=== PATIENT | female | born 2000 ===

== ENCOUNTER 2023-01-03 12:21 | Day surgery (SDC) | payer SELFPAY ==
[2023-01-03] VITALS (14 sets, daily range): BP systolic 108–128; BP diastolic 60–82; PULSE 66–102; RESP 14–18; TEMP 36.2–37.7; O2SAT 98–100; BMI 18.5
--- NOTE | ~2023-01-03 | US_ITS ---
EXAMINATION: US OBSTETRICAL ULTRASOUND CLINICAL INFORMATION: Evaluate for positive test at home with cramping COMPARISON: None available. LMP: 11/28/2022. Gestational age by maternal dates is 5 weeks 1 day. Estimated date of delivery by maternal dates is 09/04/2023. TECHNIQUE: Transabdominal and transvaginal evaluation FINDINGS: There is no intrauterine gestational or visible yolk sac, embryo/fetus seen intrauterine uterus is of normal size and shape, position. Endometrium is identified and measured 0.6 cm There is fluid in cul-de-sac and right adnexa region MATERNAL ADNEXA: The right maternal ovary measures 2.9 x 2.2 x 2.0 cm with 1.5 x 1.5 x 1.7 cm corpus luteum cyst The left maternal ovary measures 2.5 x 2.0 x 1.7 cm. There is left adnexal 2.6 x 1.8 x 1.6 cm mass with cystic center most likely ectopic US/US OB pelvic and transvaginal IMPRESSION: Ectopic in the left adnexa with fluid in the cul-de-sac in the right adnexa. This critical result was discussed with Milagros De Anda M.D. at 14 22 on 01/03/2023 and it was ascertained that the content and urgency of the report was understood at the time of direct communication.
--- NOTE | 2023-01-03 12:29 | ED.ABDPAIN ---
HPI - Abdominal Pain General Chief Complaint: General Medical Stated Complaint: Abd Pain Time Seen by Provider: 01/03/23 13:25 Source: patient Mode of arrival: ambulatory Limitations: no limitations History of Present Illness HPI narrative: Patient comes to the emergency room complaining of 5 days of left lower quadrant pain/suprapubic pain and cramping. Patient denies tnausea, vomiting or diarrhea, no fever chills. No UTI symptoms. Patient states that her last menstrual period was on November 24. Today at home, she took a home test and was positive. Patient is a at approximately 5 weeks +1 day based on last menstrual period. Patient states that approximately 2 years ago she had a spontaneous . Patient states that yesterday the pain was the worst, today she decided to come to the emergency room. Patient denies vaginal bleeding or spotting. Related Data Allergies Allergy/AdvReac Type Severity Reaction Status Date / Time No Known Allergies Allergy Verified 01/03/23 12:31 Review of Systems Review of Systems Constitutional : No Weight loss, No Fever, No Chills, No Night Sweats, No Fatigue, No Malaise ENT/Mouth : No Hearing loss, No Ear Pain, No Nasal Congestion, No Sinus Pain, No Hoarseness, No sore throat, No Rhinorrhea, No Swallowing Difficulty Eyes: No Eye Pain, No Swelling, No Redness, No Foreign Body, No Discharge, No Vision Changes Cardiovascular : No Chest Pain, No SOB, No Dyspnea on Exertion, No Orthopnea, No Edema, No Palpitations Respiratory : No Cough, No Sputum, No Wheezing, No Smoke Exposure, No Dyspnea Gastrointestinal : No Nausea, No Vomiting, No Diarrhea, No Constipation, complaining of suprapubic/left lower quadrant pain, pain gradually increasing Genitourinary : no irregular bleeding, No Dysuria, No Urinary Frequency, No Hematuria, No Urinary Incontinence, No Urgency, No Flank Pain, No Urinary Flow Changes, No Hesitancy Musculoskeletal : No joint pain, No Myalgias, No Joint Swelling Skin : No Skin Lesions, No rash Neuro : No Weakness, No Numbness, No Paresthesias, No Loss of Consciousness, No Dizziness, No Headache Psych : No Anxiety/Panic, No Depression, No SI/HI/AH/VH, No Social Issues, Heme/Lymph: No Bruising, No Bleeding,No Lymphadenopathy Endocrine : No Polyuria, No Polydipsia, No Temperature Intolerance [facility] Social History Social History Advance Directives: No Physical Exam ED Vital Signs: Vital Signs - 24 hr 01/03/23 12:29 01/03/23 13:39 Temperature 98.1 F 98.8 F Pulse Rate 85 77 Respiratory Rate 16 16 Blood Pressure 108/66 123/72 Pulse Oximetry 99 100 Oxygen Delivery Method Room Air Room Air BMI result Body Mass Index 18.5 Const Other: Appearance: Alert. Oriented X3. No acute distress. Well-appearing Eyes: Pupils equal, round and reactive to light. ENT: Pharynx normal. Neck: Normal inspection. Neck supple. No lymph nodes noted. No crepitus CVS: Normal heart rate and rhythm. Pulses normal. Normal S1 and S2 Respiratory: No respiratory distress. Breath sounds normal. No Wheezing. No rales Abdomen: Soft, significant tenderness to palpation over suprapubic and left lower quadrant, moderate rebound no guarding No rigidity. No distention. Skin: Skin warm and dry. Normal skin color. Normal skin turgor. Extremities: No lower extremity edema. No Lacerations. No Rash Neuro: Oriented X 3. No motor deficit. No sensory deficit. Moving all extremities. No slurred speech. CN 2 through 12 grossly intact Psych: calm, cooperative, normal affect Course Course Course Narrative: RME: 22yo F w/ +home test this morning c/o abdominal cramping. States feels like some discharge occured. LMP 7/11. denies vaginal bleeding, fever Labs, US ordered Full HPI, ROS and PE to be performed by primary ED provider. Medical Decision Making Medical Decision Making [facility] Narrative: -my interpretation of labs: Patient's hemoglobin hematocrit stable -vital stable, blood pressure 123/72, heart rate 77 -patient's physical exam is concerning for rupture. -I discussed the ultrasound with Dr. Morrow from [facility], patient has a left ectopic with fluid in the cul-de-sac in the right adnexa -Dr. Gurrola at bedside. Dr. Gurrola and I discussed with the patient that the safest option is to go to the OR. -patient aware of risks versus benefits of the surgery. Patient is agreeable to go ahead with the surgery. Dr. 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 01/03/23 13:32 01/03/23 13:32 Labs: Lab Results 01/03/23 01/03/23 01/03/23 Range/Units 13:32 13:32 13:47 WBC 8.0 (4.8-10.8) X10*3/uL RBC 4.23 (4.20-5.50) X10*6/uL Hgb 13.6 (12.0-16.0) g/dl Hct 40.0 (37.0-47.0) % MCV 94.6 (80.0-98.0) fL MCH 32.2 (27.0-33.0) pg MCHC 34.0 (31.0-35.0) g/dl RDW 12.7 (11.0-16.0) % Plt Count 185 (160-400) X10*3/uL MPV 11.5 (9.4-12.3) fL Immature Gran % (Auto) 0.4 (0.0-0.4) % Neut % (Auto) 63.7 (45-73) % Lymph % (Auto) 26.7 (20-40) % Cocke % (Auto) 7.6 (2-11) % Eos % (Auto) 1.1 (0-4) % Baso % (Auto) 0.5 (0-2) % Lymph # (Auto) 2.1 (1.2-4.9) X10*3/uL Cocke # (Auto) 0.6 (0.1-1.2) X10*3/uL Eos # (Auto) 0.1 (0.0-0.4) X10*3/uL Baso # (Auto) 0.0 (0.0-0.2) X10*3/uL Abs Immat Gran (auto) 0.03 (0.00-0.03) X10*3/uL Absolute Neuts (auto) 5.1 (2.0-8.3) x10*3/uL Absolute Nucleated RBC 0.000 (0.0-0.012) X10*3/uL Nucleated RBC % (auto) 0.0 (0.0-0.2) /100WBC PT (11.1-13.3) SEC INR (0.9-1.1) APTT (26.0-36.4) SEC Sodium 136 (135-145) mmol/L Potassium 4.7 (3.3-5.1) mmol/L Chloride 109 H (96-108) mmol/L Carbon Dioxide 21 L (22-29) mmol/L Anion Gap 11 L (12-20) BUN 9 (9-16) mg/dL Creatinine 0.64 (0.5-1.4) mg/dL Estim Creat Clear Calc 102.9 Estimated GFR > 60 Random Glucose 98 (60-115) mg/dL Calcium 9.4 (8.4-10.2) mg/dL Total Bilirubin 1.1 H (0.0-1.0) mg/dL Direct Bilirubin 0.4 (0.0-0.5) mg/dL AST 22 (5-31) U/L ALT 14 (0-31) U/L Alkaline Phosphatase 38 L (39-117) U/L Total Protein 7.8 (6.5-8.0) g/dL Albumin 4.4 (3.5-5.0) g/dL Lipase 20 (8-78) U/L Beta HCG, Quant 900 mIU/mL Blood Type O Positive Antibody Screen NEGATIVE 01/03/23 Range/Units 13:47 WBC (4.8-10.8) X10*3/uL RBC (4.20-5.50) X10*6/uL Hgb (12.0-16.0) g/dl Hct (37.0-47.0) % MCV (80.0-98.0) fL MCH (27.0-33.0) pg MCHC (31.0-35.0) g/dl RDW (11.0-16.0) % Plt Count (160-400) X10*3/uL MPV (9.4-12.3) fL Immature Gran % (Auto) (0.0-0.4) % Neut % (Auto) (45-73) % Lymph % (Auto) (20-40) % Cocke % (Auto) (2-11) % Eos % (Auto) (0-4) % Baso % (Auto) (0-2) % Lymph # (Auto) (1.2-4.9) X10*3/uL Cocke # (Auto) (0.1-1.2) X10*3/uL Eos # (Auto) (0.0-0.4) X10*3/uL Baso # (Auto) (0.0-0.2) X10*3/uL Abs Immat Gran (auto) (0.00-0.03) X10*3/uL Absolute Neuts (auto) (2.0-8.3) x10*3/uL Absolute Nucleated RBC (0.0-0.012) X10*3/uL Nucleated RBC % (auto) (0.0-0.2) /100WBC PT 12.3 (11.1-13.3) SEC INR 1.0 (0.9-1.1) APTT 30.3 (26.0-36.4) SEC Sodium (135-145) mmol/L Potassium (3.3-5.1) mmol/L Chloride (96-108) mmol/L Carbon Dioxide (22-29) mmol/L Anion Gap (12-20) BUN (9-16) mg/dL Creatinine (0.5-1.4) mg/dL Estim Creat Clear Calc Estimated GFR Random Glucose (60-115) mg/dL Calcium (8.4-10.2) mg/dL Total Bilirubin (0.0-1.0) mg/dL Direct Bilirubin (0.0-0.5) mg/dL AST (5-31) U/L ALT (0-31) U/L Alkaline Phosphatase (39-117) U/L Total Protein (6.5-8.0) g/dL Albumin (3.5-5.0) g/dL Lipase (8-78) U/L Beta HCG, Quant mIU/mL Blood Type Antibody Screen Independent Interpretation I performed an independent interpretation of an: Ultrasound (Mild hypertension ultrasound, there seems to be free fluid in the abdomen) Radiology Impression Discussion of test interpretation with radiology: I have reviewed the radiologist's reading. Radiologist Impression: FINDINGS: There is no intrauterine gestational or visible yolk sac, embryo/fetus seen intrauterine uterus is of normal size and shape, position. Endometrium is identified and measured 0.6 cm There is fluid in cul-de-sac and right adnexa region MATERNAL ADNEXA: ? ? The right maternal ovary measures 2.9 x 2.2 x 2.0 cm with 1.5 x 1.5 x 1.7 cm corpus luteum cyst The left maternal ovary measures 2.5 x 2.0 x 1.7 cm.? There is left adnexal 2.6 x 1.8 x 1.6 cm mass with cystic center most likely ectopic US/US OB pelvic and transvaginal IMPRESSION: Ectopic in the left adnexa with fluid in the cul-de-sac in the right adnexa. ? Independent Historian Clinical information obtained from an independent historian. History obtained from or confirmed by: Other (Significant other/boyfriend) Critical Care Time Critical Care Time Critical Care Time: Yes Total Critical Care Time: 60 Attestation: I have personally provided critical care time. Time includes review of lab data, radiology results, discussion with consultants, and monitoring for potential decompensation. Intervention performed as documented. Discharge Plan Discharge Clinical Impression: Ruptured ectopic Patient Disposition: Admitted As Inpatient
--- NOTE | 2023-01-03 13:25 | P.CONOB_ITS ---
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 LMP 11/28 making her by today at 5 weeks and 1 day of gestation. the patient denies vaginal bleeding, fever. HCG 900. H&H within normal, chemistry normal. 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 Physical Exam Vitals Vital signs: Temp Pulse Resp BP Pulse Ox O2 Del Method 98.1 F 85 16 108/66 99 Room Air 01/03/23 12:29 01/03/23 12:29 01/03/23 12:29 01/03/23 12:29 01/03/23 12:29 01/03/23 12:29 BMI result Body Mass Index 18.5 Abdomen Auscultation/Inspection/Palpation: Tenderness (LLQ ), Guarding and Rebound tenderness Female Genitalia (Pelvic) Bladder/Urethra: Normal meatus Vagina: Nontender Cervix: Grossly normal and Cervical motion tenderness Uterus: Normal size Adnexa/Parametria: Adnexal Tenderness: Left [employer]CR[employer] 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 This critical result was discussed with Milagros De Anda M.D. at 14 22 on 01/03/2023 and it was ascertained that the content and urgency of the report was understood at the time of direct communication. Assessment and Plan (1) Ectopic : Status: Acute Discussed with the patient her clinical scenario, differential diagnosis includes not limited to: possible ectopic with tender left lower quadrant and positive rebound on abdominal exam and with free fluid in the cul-de-sac on ultrasound suggestive of possible early rupture versus early IUP with ruptured ovarian cyst. Discussed with the patient options of treatment including methotrexate versus surgical management, all pros and cons, risks and benefits of each were discussed with the patient. The patient decided to proceed with surgical management. Will plan diagnostic laparoscopy, possible laparoscopic salpingostomy possible partial salpingectomy, possible laparotomy. All the pros and cons were discussed with the patient including the risks including but not limited to: Risk of bleeding, infection, possible injury to bladder, bowel, ureter, bladder, possible injury to vessels and need for blood transfusion with all its risks including HIV, hepatitis-B and C and other blood borne pathogens, possible negative impact on future fertility. All questions answered, the patient verbalized understanding agreed with the plan and signed the consent. Time Spent With Patient Time: Total time managing care of this patient today ____ minutes.
--- NOTE | 2023-01-03 13:30 | PC.NURSE ---
pt c/o LLQ abd pain x 5 days; reports nausea denies v/d; reports some vaginal discharge; last menstruation early november. tenderness noted LLQ; no distention. iv established; labs drawn; type & screen completed per order.
[2023-01-03 13:36] LABS: MANUAL DIFF FLAG NO
[2023-01-03 13:41] LABS: Basophils Percent Auto 0.5 % (0-2); Eosinophils Absolute Auto 0.1 X10*3/uL (0.0-0.4); Eosinophils Percent Auto 1.1 % (0-4); Hemoglobin 13.6 g/dl (12.0-16.0); Imm Gran Abs Auto 0.03 X10*3/uL (0.00-0.03); Imm Gran Pct Auto 0.4 % (0.0-0.4); Lymphocytes Absolute Auto 2.1 X10*3/uL (1.2-4.9); Lymphocytes Percent Auto 26.7 % (20-40); Mean Corpuscular Hemoglobin 32.2 pg (27.0-33.0); Mean Corpuscular Volume 94.6 fL (80.0-98.0); Mean Platelet Volume 11.5 fL (9.4-12.3); Monocytes Absolute Auto 0.6 X10*3/uL (0.1-1.2); Monocytes Percent Auto 7.6 % (2-11); Neutrophils Absolute Auto 5.1 x10*3/uL (2.0-8.3); Neutrophils Percent Auto 63.7 % (45-73); Platelet Count 185 X10*3/uL (160-400); Red Blood Count 4.23 X10*6/uL (4.20-5.50); Red Cell Distribution Width 12.7 % (11.0-16.0)
[2023-01-03 14:08] LABS: Prothrombin Time 12.3 SEC (11.1-13.3)
[2023-01-03 14:10] LABS: Partial Thromboplastin Time 30.3 SEC (26.0-36.4)
[2023-01-03 14:12] LABS: Alanine Aminotransferase 14 U/L (0-31); Albumin Level 4.4 g/dL (3.5-5.0); Alkaline Phosphatase 38 U/L (39-117); Anion Gap 11 (12-20); Aspartate Amino Transferase 22 U/L (5-31); Bilirubin Direct 0.4 mg/dL (0.0-0.5); Bilirubin Total 1.1 mg/dL (0.0-1.0); Blood Urea Nitrogen 9 mg/dL (9-16); Calcium 9.4 mg/dL (8.4-10.2); Carbon Dioxide 21 mmol/L (22-29); Chloride 109 mmol/L (96-108); Creatinine Clr Calc Pharmacy 102.9; Estimated Glomerular Filt Rate > 60; Glucose Random 98 mg/dL (60-115); HCG Quantitative 900 mIU/mL; Lipase 20 U/L (8-78); Potassium 4.7 mmol/L (3.3-5.1); Sodium 136 mmol/L (135-145); Total Protein 7.8 g/dL (6.5-8.0)
--- NOTE | 2023-01-03 14:40 | PC.NURSE ---
OB Dr. Roche at bedside for pelvic exam; awaiting further orders for OR needs.
--- NOTE | 2023-01-03 15:56 | PC.NURSE ---
report given to pacu.
--- NOTE | 2023-01-03 16:24 | P.CONAN_ITS ---
HPI - Anesthesia Eval Consult details Narrative: 22 yo female patient for Laparoscopic salpingectomy PMFSH Active Problems Active Problems: All Active Problems (Updated 01/03/23 @ 16:27 by Susana Robles MD) Ectopic (Acute) Ruptured ectopic (Acute) H/o dental extractions(molars) with GA Approx. 5weeks by LMP Family History Family history of problems with anesthesia: No Surgical History History of Problems with Anesthesia: No Social History Social History (Updated 01/03/23 @ 17:40 by Susana Robles MD) Alcohol intake: current Alcohol intake frequency: a few times a week Patient Tobacco Use Status: Never used Tobacco Meds Allergies Allergy/AdvReac Type Severity Reaction Status Date / Time No Known Allergies Allergy Verified 01/03/23 12:31 Exam Exam Date and Time: January 03, 2023 1624 Height,Weight and Vital Signs: Height 5 ft 3 in Weight 47.3 kg Last Vital Signs Temp 98.8 F 01/03/23 13:39 Pulse 77 01/03/23 13:39 Resp 16 01/03/23 13:39 BP 123/72 01/03/23 13:39 Pulse Ox 100 01/03/23 13:39 O2 Del Method Room Air 01/03/23 13:39 Vital Signs Temp Pulse Resp BP Pulse Ox O2 Del Method 01/03/23 16:29 99.8 F 77 18 116/64 99 Room Air 01/03/23 13:39 98.8 F 77 16 123/72 100 Room Air 01/03/23 12:29 98.1 F 85 16 108/66 99 Room Air Pertinent Lab Results Pertinent Lab Results: Laboratory Tests 01/03/23 01/03/23 01/03/23 13:32 13:32 13:47 WBC 8.0 RBC 4.23 Hgb 13.6 Hct 40.0 MCV 94.6 MCH 32.2 MCHC 34.0 RDW 12.7 Plt Count 185 MPV 11.5 Immature Gran % (Auto) 0.4 Neut % (Auto) 63.7 Lymph % (Auto) 26.7 Jessamine % (Auto) 7.6 Eos % (Auto) 1.1 Baso % (Auto) 0.5 Lymph # (Auto) 2.1 Jessamine # (Auto) 0.6 Eos # (Auto) 0.1 Baso # (Auto) 0.0 Abs Immat Gran (auto) 0.03 Absolute Neuts (auto) 5.1 Absolute Nucleated RBC 0.000 Nucleated RBC % (auto) 0.0 PT INR APTT Sodium 136 Potassium 4.7 Chloride 109 H Carbon Dioxide 21 L Anion Gap 11 L BUN 9 Creatinine 0.64 Estim Creat Clear Calc 102.9 Estimated GFR > 60 Random Glucose 98 Calcium 9.4 Total Bilirubin 1.1 H Direct Bilirubin 0.4 AST 22 ALT 14 Alkaline Phosphatase 38 L Total Protein 7.8 Albumin 4.4 Lipase 20 Beta HCG, Quant 900 Blood Type O Positive Antibody Screen NEGATIVE 01/03/23 13:47 WBC RBC Hgb Hct MCV MCH MCHC RDW Plt Count MPV Immature Gran % (Auto) Neut % (Auto) Lymph % (Auto) Jessamine % (Auto) Eos % (Auto) Baso % (Auto) Lymph # (Auto) Jessamine # (Auto) Eos # (Auto) Baso # (Auto) Abs Immat Gran (auto) Absolute Neuts (auto) Absolute Nucleated RBC Nucleated RBC % (auto) PT 12.3 INR 1.0 APTT 30.3 Sodium Potassium Chloride Carbon Dioxide Anion Gap BUN Creatinine Estim Creat Clear Calc Estimated GFR Random Glucose Calcium Total Bilirubin Direct Bilirubin AST ALT Alkaline Phosphatase Total Protein Albumin Lipase Beta HCG, Quant Blood Type Antibody Screen Airway Mallampati Class: I TM Dist: >3cm Neck ROM: Full Loose/Missing/Broken Teeth: Yes (Missing some molars) Heart: RRR Lungs: CTAB Assessment and Plan Assessment Anesthesia Assessment: Anesthesia Plan Discussed and Chart Reviewed Final Anesthetic Review Family History of Problems with Anesthesia: No History of Problems with Anesthesia: No NPO: Yes ASA Class: I and Emergency Final Preanesthetic Review: No Changes in Pt Med Stat, Meds/Allgs Chart Reviewed, Consent Obtained/Reviewed and Anes Risks/Benef Reviewed Patient Risk: Low Procedure Risk: Low Anesthetic Plan Anesthetic Plan: GA Disposition: Standard PACU
[2023-01-03] MEDS: Lactated Ringers 1,000 ML 100 ML IVCONT (16:39)
--- NOTE | 2023-01-03 17:58 | PM.OP ---
Brief Operative Note Date of Service: 01/03/23 Pre-op diagnosis: Left ectopic Post-op diagnosis: same ( left tubal ectopic with early rupture and 300 cc of hemoperitoneum) Procedure: Laparoscopic left salpingectomy Surgeon: Brennon Gurrola MD Anesthesia: GETA Was an Director Of Medicare used for this Procedure?: No Estimated blood loss (mL): 0 Pathology: other (left fallopian tube with ectopic ) Condition: stable Disposition: PACU
--- NOTE | 2023-01-03 17:59 | P.OP_ITS ---
Operative Note Operative Note Date of Service: 01/03/23 Narrative: PREOPERATIVE DIAGNOSIS:? left tubal ectopic POSTOPERATIVE DIAGNOSIS:? left ectopic filling up most of the tubal length with bluish discoloration with signs of early rupture, 300 cc of hemoperitoneum Procedure: left salpingectomy QBL: Minimal Anesthesia: GETA SURGEON:? Brennon Gurrola MD?? Running Specialist:None Complications: None Pathology: Left Fallopian tubes? with ectopic DESCRIPTION OF PROCEDURE:?The patient was taken to the OR where general anesthesia was easily obtained. The patient was then prepped and draped in a sterile fashion and placed in dorsal lithotomy position. A speculum was int roduced into the patient?s vagina for cervical visualization. a was introduced into the patient?s cervix. The single tooth tenaculum was then removed and hemostasis was assured?using pressure. a Mcleod catheter?was inserted and clear urine started draining. Gloves were changed to clean ones. Attention was then drawn to the abdomen where a 10 mm longitudinal incision was done intra umbilical and carried down all the way to the fascia, which was tented?up using 2 Clayton clamps and was nicked in the midline and then extended on both end of the incision?, them using 2 pick?ups the peritoneum?was entered with Metzenbaum scissors and under direct visualization, a 10 mm Hinojosa trocar was introduced into the patient?s abdomen. Once intraperitoneal placement was confirmed with direct visualization, pneumoperitoneum was started & was easily obtained.Then, two fingerbreadths above the pubic symphysis and towards the?right lower quadrant, under direct visualization, a 5 mm trocar was then introduced into the patient?s abdomen. and a 3rd one on the left?lower quadrant was placed?in a similar manner. The patient was placed in Trendelenburg position, Inspection revealed left tubal filling up most of the right tube was bluish discoloration, signs of rupture and 300 cc of hemoperitoneum, normal bilateral ovaries and normal right fallopian tube. Attention was then drawn to the left f allopian tube. Since most of the left tube was filled up with the ectopic with bluish discoloration with signs of early rupture, the decision was made to proceed with left salpingectomy instead of salpingostomy. The IP ligament was identified and fallopian tube was then grasped by the fimbria and incised from the mesosalpinx using ligasure device, using cautery for hemostasis and cutting afterwards a bite at a time all the way to the area medial to the edge of the ectopic of the Left fallopian tube. Good hemostasis was noted from the left fallopian tube sites and the operative site. Specimen were then removed from the patient?s abdomen using endobag from the 10 mm trocar through the umbilicus. Copious irrigation was done. Once good hemostasis was noted from the patient?s abdomen, pneumoperitoneum was deflated and all trocars were removed. Infraumbilical fascia was closed with 0 Vicryl and interrupted suture. The skin was closed with 4-0 Vicryl. The right and left?lower quadrant ports were closed with 0 Vicryl. Bupivicaine 0.25 10 cc were injected subcuticularly in the 3 incisions. Then speculum was put back in the vagina inspection revealed?hemostasis at the site of the tenaculum, the?sponge stick was removed?from the patient's vagina and Mcleod was draining clear urine was taken out too. Sponge, lap and needle counts were correct x2. The patient was taken to the recovery room in stable condition.
[2023-01-03] MEDS: Acetaminophen 1,000 MG/100 ML PIGGYBACK 400 MG IV (18:24)
[2023-01-03] MEDS: fentaNYL citrate/PF 100 MCG/2 ML VIAL 25 MCG IVPUSH ×2 (18:26→18:33)
[2023-01-04 08:56] LABS: CT PCR NOT DETECTED (Not Detect.); NG PCR NOT DETECTED (Not Detect.)
== END 2023-01-03 19:44 | disposition home or self-care (01) ==
LOC: HO.ED 14:54 → HO.SSS 15:24
PROVIDERS: Physician Assistant; Emergency Provider Emergency Medicine; Visit Provider Obstetrics & Gynecology
PROC: (CPT 59151; principal; 2023-01-03 15:30)
DX: O00.102 Left tubal pregnancy without intrauterine pregnancy (principal); K66.1 Hemoperitoneum; Z3A.01 Less than 8 weeks gestation of pregnancy; N83.8 Other noninflammatory disorders of ovary, fallopian tube and broad ligament; R10.32 Left lower quadrant pain; N89.8 Other specified noninflammatory disorders of vagina
CPT/HCPCS: 59151; 0353U; 36415; 76801; 76817; 80048; 80076; 83690; 84702; 85025; 85610; 85730; 86850; 86900; 86901; 87480; 87510; 87660; 88305; 99284; 99285; J0131; J1100; J2250; J2405; J2795; J3010

== ENCOUNTER → 2023-01-03 15:24 | Outpatient (BNV) | payer SELFPAY | PROVIDERS: Emergency Provider Emergency Medicine; Visit Provider Obstetrics & Gynecology | DX: O00.90 Unspecified ectopic pregnancy without intrauterine pregnancy (principal) | CPT/HCPCS: 59151; 99283 ==

== ENCOUNTER 2023-01-17 16:12 | Emergency (ER) | payer SELFPAY ==
[2023-01-17 16:44] VITALS: BP 106/54; PULSE 86; RESP 18; TEMP 36.3; O2SAT 100; BMI 18.5
--- NOTE | 2023-01-17 16:52 | ED_ITS ---
HPI - General Adult General Chief complaint: General Medical Stated complaint: suture removal from surgery? 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 Patient had a left salphingectomy secondary to a ruptured ectopic on 01/03 with recommendations to follow-up with gynecology office in 2 weeks for follow-up for suture removal. It seems d/t the language barrier the patient believed she was supposed to come here to the ER for this. Of note, all discharge instructions given to the patient were in singaporean. She has no complaints and is feeling well Related Data Previous Rx's Medication Instructions Recorded oxycodone 5 mg capsule 5 mg PO Q4-6H PRN Pain, Severe 01/03/23 (Pain Scale 7-10) #20 caps Allergies Allergy/AdvReac Type Severity Reaction Status Date / Time No Known Allergies Allergy Verified 01/17/23 16:44 Review of Systems Review of Systems: Yes all other systems are reviewed and are negative Constitutional: Constitutional: Reports no additional constitutional complain ts, Denies body ache(s), Denies chills, Denies fever(s), Denies headache(s) and Denies weakness Eyes: Eyes: Reports no additional eye complaints and Denies change in vision ENT: Reports system reviewed and no additional complaints, except as documented, Denies dizziness, Denies headache(s), Denies nasal congestion, Denies nasal discharge and Denies neck pain Cardiovascular: Cardiovascular: Reports no additional cardiovascular complaints, Denies chest pain, Denies leg edema and Denies dyspnea Respiratory: Respiratory: Reports no additional respiratory complaints, Denies cough and Denies dyspnea Gastrointestinal: Gastrointestinal: Reports no additional gastrointestinal complaints, Denies abdominal pain, Denies diarrhea, Denies nausea and Denies v omiting Genitourinary: Genitourinary: Reports no additional female genitourinary complaints and Denies urinary incontinence Musculoskeletal: Musculoskeletal: Reports no additional musculoskeletal complaints, Denies back pain, Denies arthralgias, Denies joint swelling, Denies neck pain, Denies numbness and Denies tingling Integumentary/Breasts: Skin/Breast: Reports system reviewed and no additional complaints, except as docu and Denies rash Neurologic: Reports system reviewed and no additional complaints, except as documented, Denies dizziness, Denies headache(s), Denies numbness, Denies tingling and Denies weakness PMFSH Past Medical History Attestation statement: The following information was validated with the patient. Source: old records reviewed and nursing notes reviewed Social History Social History Alcohol intake: current Alcohol intake frequency: a few times a week Patient Tobacco Use Status: Never used Tobacco Advance Directives: No Advance Directives Information Provided: Yes Physical Exam ED Vital Signs: Vital Signs - 24 hr 01/17/23 16:44 Temperature 97.4 F Pulse Rate 86 Respiratory Rate 18 Blood Pressure 106/54 L Pulse Oximetry 100 Oxygen Delivery Method Room Air BMI result Body Mass Index 18.5 Const General: cooperative, healthy appearing, comfortable and no acute distress Orientation/consciousness: patient oriented x3 HENMT Head: Yes normal to inspection Eyes General: appearance normal, both eyes and all related structures Neck Neck: Yes normal visual inspection Chest Chest palpation & inspection: normal inspection of the chest Resp Effort & Inspection: normal respiratory effort GI Inspection: Yes normal to inspection Skin General skin exam: no rashes or lesions noted Neuro General: patient oriented x3 and moves all extremities Cognition (Neuro): normal cognition Course Course Course Narrative: This is an RME: Additional HPI, ROS, PE not included below will be deferred to primary provider. This is 22 y/o F here for suture removal. She had sutures placed after ectopic surgery performed on 01/09. Suture appears buried, unable to remove intriage. No surrounding erythema, warmth or drainage. Medical Decision Making Medical Decision Making MDM Narrative: 22 yo female here seeking suture removal. Patient had a left salphingectomy secondary to a ruptured ectopic on 01/03 with recommendations to follow-up with gynecology office in 2 weeks for follow-up for suture removal. It seems d/t the language barrier the patient believed she was supposed to come here to the ER for this. Of note, all discharge instructions given to the patient were in singaporean. She has no complaints and is feeling well I recommended she follow-up with [facility] outpatient Differential Diagnosis Differential Diagnoses: The differential diagnosis associated with the presentation includes post-op f/u External Record Review External record reviewed: Inpatient record for ectopic Discharge Plan Discharge Clinical Impression: Suture check Patient Disposition: Home, Self-Care Instructions: Care For Your Stitches (ED) Additional Instructions: Call the gynecology office to make a follow-up appointment and to have your sutures removed. Llame al consultorio de ginecolog?a para programar rod mikal de seguimiento y que le retiren las suturas. Prescriptions: No Action oxycodone 5 mg capsule 5 mg PO Q4-6H PRN (Reason: Pain, Severe (Pain Scale 7-10)) Qty: 20 0RF Rx Instructions: Partial Fill upon patient request. Referrals: Brennon Gurrola MD [Physician] - 3 days Print Language: Jamaican
== END 2023-01-17 17:28 | disposition home or self-care (01) ==
PROVIDERS: Emergency Provider Emergency Medicine Emergency Medical Services
DX: Z48.02 Encounter for removal of sutures (principal); Z98.890 Other specified postprocedural states
CPT/HCPCS: 99282; 99283

== ENCOUNTER 2023-01-31 11:13 | Outpatient (AMB) | payer SELFPAY ==
--- NOTE | 2023-01-31 11:16 | A.OFFVIS_ITS ---
Intake Vital Signs 01/31/23 11:18 Height 5 ft 3 in Weight 103 lb 9.876 oz BMI 18.4 BP 104/62 Intake Visit Reasons: post op Chemical Recovery Operator Required: Yes Chemical Recovery Operator Language: Conductor/Brakeman Name: Jennifer FRITZ Information Interpreted: non-clinical & clinical Accompanied by: Self / Same As Patient Allergies No Known Allergies Allergy (Verified 01/31/23 11:19) Is last menstrual period known: Yes Last menstrual period: 01/03/23 HPI HPI Comments History of Present Illness Details The patient is presenting 2 weeks post laparoscopic left salpingectomy for left ectopic with early rupture. The patient has no complaints. No feverishness, chills, no pain at the incision sites, no GI/ symptoms. The pathology showed the following: Acute intratubal hemorrhage and rare chorionic villi consistent with products of conception (ectopic ); paratubal cyst (0.6 cm). The patient went to a clinic yesterday was started on norethindrone 0.35 mg which she took the 1st pill yesterday. Unprotected intercourse since surgery PFSH Medical History (Updated 01/31/23 @ 11:38 by Brennon Gurrola MD) Migraine headache Ectopic Family History (Updated 01/31/23 @ 11:23 by Jennifer Sage CMA) Mother HTN (hypertension) Father Heart attack Social History (Updated 01/31/23 @ 11:23 by Jennifer Sage CMA) Household Members: Significant Other Housing: Apartment Alcohol intake: current Alcohol intake frequency: a few times a week Patient Tobacco Use Status: Never used Tobacco Current occupational status: unemployed Sexually active: Yes Sexual orientation: Straight/Heterosexual Gender identity: Female Female Reproductive History Menstrual Age of Menarche: 12 Date of last menstrual period: 01/03/23 control method: pills Total pregnancies: 2 Number of Living Children: 0 Ab spontaneous: 1 Ectopics: 1 Review of Systems Const All systems reviewed & are unremarkable except as noted in HPI and below Reports as per HPI and Reports no additional complaints GI Reports no additional complaints Reports no additional complaints Physical Exam Vital Signs: Last Vital Signs BP 104/62 01/31/23 11:18 BMI result Body Mass Index 18.4 Assessment & Plan Assessment & Plan (1) Ectopic : Comment: Status post left laparoscopic salpingectomy Code(s): O00.90 - Unspecified ectopic without intrauterine Plan: Repeat hCG quantitative ordered today and will follow it down to non level if it is not down to 0. Discussed with the patient the procedure, the intraoperative findings, and pathology results . In addition, discussed with the patient the failure rate of the procedure. Discussed with the patient the recurrences of ectopic , the patient was instructed to take a test if she misses her periods and to call for an early follow-up of hCG to diagnose an early recurrent ectopic or to confirm IUP. All questions answered the patient verbalized understanding. (2) Family planning: Code(s): Z30.09 - Encounter for other general counseling and advice on contraception Plan: Discussed with the patient the different options of control including control pills/Nuvaring, DMPA, IUD (Mirena, Paraguard), sterilization. All the pros, cons, risks and benefits of each were discussed with the patient. The patient decided to go ahead with DMPA so a more detailed discussion re: Depo- Provera including mechanism of action, benefits (amenorrhea after initial dub, ...), risks ( mood lability, weight gain, initial dub, bone loss reversible, ? increase Breast Cancer risk, others). Instructions were given to use a back up method for contraception for the 1st 2 weeks of DMPA. Since the patient does not have any history of unprotected intercourse over the last 2 weeks will give Depo-Provera 150 mg IM today. Instructions given the patient to schedule a 90 day appointment for another Depo-Provera. All questions answered, the patient verbalized understanding. Orders: Orders HCG Quantitative Today O00.90 - Unspecified ectopic without intrauterine Medications: New medroxyprogesterone (Depo-Provera) 150 mg IM [id number] 1 mL 4RF Coding Level of Care Code Est Pt Level 3 (75528) Diagnoses Ectopic O00.90 Family planning Z30.09
[2023-01-31 11:18] VITALS: BP 104/62; BMI 18.4
== END 2023-01-31 12:09 | disposition home or self-care (01) ==
PROVIDERS: Visit Provider Obstetrics & Gynecology
DX: O00.90 Unspecified ectopic pregnancy without intrauterine pregnancy (principal); Z30.09 Encounter for other general counseling and advice on contraception
CPT/HCPCS: 99024

== ENCOUNTER → 2023-01-31 11:13 | Outpatient (BNVA) | payer MEDICAID, OTHER, SELFPAY | PROVIDERS: Visit Provider Obstetrics & Gynecology | DX: O00.90 Unspecified ectopic pregnancy without intrauterine pregnancy (principal); Z30.09 Encounter for other general counseling and advice on contraception; Z90.79 Acquired absence of other genital organ(s) | CPT/HCPCS: 99212 ==

== ENCOUNTER 2023-03-13 13:48 | Emergency (ER) | payer MEDICAID, OTHER, SELFPAY ==
--- NOTE | ~2023-03-13 | US_ITS ---
EXAMINATION: US OBSTETRICAL ULTRASOUND CLINICAL INFORMATION: Left lower quadrant pain, history of ectopic COMPARISON: Obstetrical pelvic ultrasound 01/03/2023 Ectopic 01/03/2023 LMP: 02/05/2023. Gestational age by maternal dates is 5 weeks 1 day. Estimated date of delivery by maternal dates is 11/12/2023. TECHNIQUE: Transabdominal and transvaginal scanning were performed. FINDINGS: There is a single intrauterine gestational sac with visible and yolk sac. It is too early to see a pole and cardiac activity. There is no significant subchorionic hemorrhage or hematoma. Mean sac diameter 0.69 cm (5 weeks 2 days +/- 4 days). MICHAEL (estimated date of delivery): 11/11/2023 +/- 4 days. MATERNAL ADNEXA: The right maternal ovary measures 3.2 x 2.7 x 2.2 cm. 1.7 x 1.8 x 1.4 cm complex cyst in the right ovary likely represents the corpus luteum. The left maternal ovary measures 2.4 x 1.9 x 1.4 cm. The left ovary is normal in appearance There is no significant maternal adnexal mass. No maternal pelvic ascites. US/US OB pelvic and transvaginal IMPRESSION: 1. Single intrauterine gestation with ultrasound gestational age of 5 weeks 2 days +/- 4 days. 2. Estimated date of delivery is 11/11/2023 +/- 4 days. 3. A gestational sac containing a yolk sac are seen. It is too early to see an pole and cardiac activity.
[2023-03-13 14:12] VITALS: BP 123/54; PULSE 100; RESP 20; TEMP 36.4; O2SAT 99; BMI 19.5
--- NOTE | 2023-03-13 14:15 | ED.GENADULT ---
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 Reports that she is 10 days late for starting her period. Reports last menstrual period was February 07. Also reports urinary frequency, denies dysuria or hematuria. Denies fevers. Denies any abnormal vaginal discharge. Reports nausea but denies vomiting, diarrhea, or constipation. MD complaint: abdominal pain Onset (ago): week(s) Location: abdomen Radiation: non-radiation Severity: mild Quality: aching Pain Consistency: intermittent Relieving factors: none Exacerbating factors: none Associated symptoms: nausea/vomiting (Reports nausea denies vomiting) Treatments prior to arrival: none Related Data Previous Rx's Medication Instructions Recorded medroxyprogesterone 150 mg/mL 150 mg IM [id number] #1 mL 01/31/23 intramuscular suspension (Depo-Provera) vitamins no.119-iron 1 tab PO DAILY #30 tabs 03/13/23 fumarate 29 mg-folic acid 1 mg tablet ( 19) Allergies Allergy/AdvReac Type Severity Reaction Status Date / Time No Known Allergies Allergy Verified 01/31/23 11:19 Review of Systems Review of Systems: As per HPI. Yes all other systems are reviewed and are negative Constitutional: Constitutional: Reports as per HPI [facility] Past Medical History Medical History (Updated 03/13/23 @ 18:03 by Debra Sanchez NP) Migraine headache Ectopic Family History Family History (Updated 01/31/23 @ 11:23 by Jennifer Sage CMA) Mother HTN (hypertension) Father Heart attack Social History Social History (Updated 01/31/23 @ 11:23 by Jennifer Sage CMA) Household Members: Significant Other Housing: Apartment Alcohol intake: current Alcohol intake frequency: a few times a week Patient Tobacco Use Status: Never used Tobacco Advance Directives: No Advance Directives Information Provided: No Current occupational status: unemployed Sexual orientation: Straight/Heterosexual Gender identity: Female Physical Exam ED Vital Signs: Vital Signs - 24 hr 03/13/23 14:12 Temperature 97.6 F Pulse Rate 100 Respiratory Rate 20 Blood Pressure 123/54 L Pulse Oximetry 99 Oxygen Delivery Method Room Air BMI result Body Mass Index 19.5 Vital signs have been reviewed and appear to be correct. Blood pressure normal. Heart rate normal. Respiratory rate normal. Temperature normal. Oxygen saturation normal. Const General: cooperative, healthy appearing and no acute distress Orientation/consciousness: oriented to person, oriented to place, oriented to time and patient oriented x3 Limitations: no limitations HENMT Head: Yes normocephalic and Yes atraumatic Ears: external ears normal General nose exam: Normal external nose present Face and sinus: Yes face symmetric Mouth: oropharynx normal and moist mucous membranes Throat: Yes uvula midline Eyes Pupils: Equal, round and reactive pupils present Neck Neck: Yes normal visual inspection and Yes supple Resp Effort & Inspection: normal respiratory effort and able to speak in complete sentences Auscultation: clear to auscultation bilaterally Cardio Rate: regular rate Rhythm: regular rhythm Heart sounds: S1 normal heart sound present and S2 normal heart sound present GI Palpation (GI): Soft to palpation, Tenderness to palpation present (GI) in the RLQ (mild), no guarding and No Rebound tenderness present Auscultation: normoactive bowel sounds General: Yes no CVA tenderness Back/Spine/Pelvis Back: no CVA tenderness Skin General skin exam: elasticity normal and turgor normal Neuro General: oriented to person, oriented to place, oriented to time, patient oriented x3, moves all extremities, no focal motor deficits and CN's II-XI intact bilaterally Cranial nerves: Yes Equal, round and reactive pupils present Cognition (Neuro): normal cognition Extrem General: Yes full ROM, Yes no pedal edema and Yes no calf tenderness Psych Mental Status: mental status grossly normal Affect: normal affect Thought process: Normal thought process present Course Course Course Narrative: Patient complains of missed. And feeling mild nausea and some intermittent crampy suprapubic pain over past day Denies dysuria, she is not vomiting today she is able to tolerate some food but she does feel nauseous, no diarrhea no fever Urinalysis and test sent him This is rapid medical exam pending full evaluation including history physical and dispo of patient from provider in the ER Medical Decision Making Medical Decision Making MDM Narrative: Patient is a 22-year-old Salvadorean-speaking female with history of ectopic presenting to the emergency department with complaint of lower abdominal pain for the past week. On exam patient is awake, A+Ox3, VS WNL, afebrile, normal neurological exam without focal deficits, physical exam findings as above. Given reported symptoms and physical exam findings, initial differential includes ectopic , UTI, ovarian cyst, appendicitis, salpingitis, nephrolithiasis. Urine positive. Labs notable for no leukocytosis, no anemia, no significant electrolyte abnormalities, HCG of 7190. Ultrasound notable for single intrauterine with gestational age of 5 weeks. My interpretation is in agreement with the radiologist's interpretation. Patient updated on results and all questions answered via automatic embroidery machine tender. Patient states she does not have an OBGYN, will refer to Dr. Gurrola. Return precautions discussed at bedside. Will prescribe vitamins. Patient verbalized understanding of and agreement with plan. Differential Diagnosis Differential Diagnoses: The differential diagnosis associated with the presentation includes As per MDM. Lab Data [facility] Lab Attestation statement: I reviewed the patient's lab results. As per MDM. 03/13/23 16:04 03/13/23 16:04 Labs: Lab Results 03/13/23 03/13/23 Range/Units 14:24 16:04 WBC 6.0 (4.8-10.8) X10*3/uL RBC 4.38 (4.20-5.50) X10*6/uL Hgb 14.1 (12.0-16.0) g/dl Hct 42.2 (37.0-47.0) % MCV 96.3 (80.0-98.0) fL MCH 32.2 (27.0-33.0) pg MCHC 33.4 (31.0-35.0) g/dl RDW 12.6 (11.0-16.0) % Plt Count 183 (160-400) X10*3/uL MPV 11.6 (9.4-12.3) fL Immature Gran % (Auto) 0.2 (0.0-0.4) % Neut % (Auto) 53.1 (45-73) % Lymph % (Auto) 34.6 (20-40) % Bell % (Auto) 10.1 (2-11) % Eos % (Auto) 1.3 (0-4) % Baso % (Auto) 0.7 (0-2) % Lymph # (Auto) 2.1 (1.2-4.9) X10*3/uL Bell # (Auto) 0.6 (0.1-1.2) X10*3/uL Eos # (Auto) 0.1 (0.0-0.4) X10*3/uL Baso # (Auto) 0.0 (0.0-0.2) X10*3/uL Abs Immat Gran (auto) 0.01 (0.00-0.03) X10*3/uL Absolute Neuts (auto) 3.2 (2.0-8.3) x10*3/uL Absolute Nucleated RBC 0.000 (0.0-0.012) X10*3/uL Nucleated RBC % (auto) 0.0 (0.0-0.2) /100WBC PT 12.8 (11.1-13.3) SEC INR 1.1 (0.9-1.1) Sodium 138 (135-145) mmol/L Potassium 4.4 (3.3-5.1) mmol/L Chloride 108 (96-108) mmol/L Carbon Dioxide 22 (22-29) mmol/L Anion Gap 12 (12-20) BUN 6 L (9-16) mg/dL Creatinine 0.58 (0.5-1.4) mg/dL Estim Creat Clear Calc 119.8 Estimated GFR > 60 Random Glucose 78 (60-115) mg/dL Calcium 9.4 (8.4-10.2) mg/dL Total Bilirubin 1.6 H (0.0-1.0) mg/dL AST 16 (5-31) U/L ALT 15 (0-31) U/L Alkaline Phosphatase 39 (39-117) U/L Total Protein 7.3 (6.5-8.0) g/dL Albumin 4.5 (3.5-5.0) g/dL Beta HCG, Quant 7190 mIU/mL Urine Color Yellow Urine Appearance Clear Urine pH 6.5 (5.0-9.0) Ur Specific [place] 1.020 (1.005-1.025) Urine Protein Negative (Neg-Trace) mg/dL Urine Glucose (UA) Negative (Negative) mg/dL Urine Ketones Negative (Negative) mg/dL Urine Blood Negative (Negative) Urine Nitrite Negative (Negative) Ur Leukocyte Esterase Small (1+) H (Negative) Urine RBC 0-2 (0-2) /HPF Urine WBC 11-20 H (0-5) /HPF Ur Squamous Epith Cells 3-5 (0-2) /HPF Urine Bacteria 1+ (None Seen) Hyaline Casts 0-2 (0-2) /LPF Urine Test POSITIVE H (NEGATIVE) Blood Type O Positive Independent Interpretation I performed an independent interpretation of an: Ultrasound Interpretation: Single intrauterine gestation with age of 5 weeks 2 days +/- 4 days Radiology Impression Discussion of test interpretation with radiology: I have reviewed the radiologist's reading. Radiologist Impression: US/US OB pelvic and transvaginal IMPRESSION: 1. Single intrauterine gestation with ultrasound gestational age of 5 weeks 2 days +/- 4 days. 2. Estimated date of delivery is 11/11/2023 +/- 4 days. 3. A gestational sac containing a yolk sac are seen. It is too early to see an pole and cardiac activity. External Record Review External record reviewed: Inpatient record, Office record and Outpatient record Prescription Management I considered prescription management with: Other Discharge Plan Discharge Clinical Impression: Qualifiers: Weeks of gestation: less than 8 weeks Qualified Code(s): Z3A.01 - Less than 8 weeks gestation of Patient Disposition: Home, Self-Care Instructions: (ED) Additional Instructions: Usted fue evaluado en el departamento de emergencias hoy por dolor abdominal. Arreguin an?lisis de emigdio y arreguin ultrasonido mostraron que est? embarazada. Comun?quese con el consultorio del Dr. Gurrola para programar rod mikal de seguimiento y recibir atenci?n adicional. Regrese al departamento de emergencias si presenta un dolor abdominal que empeora, sangrado vaginal, fiebre o cualquier otro s?ntoma preocupante. Prescriptions: New 19 29 mg iron- 1 mg tablet 1 tab PO DAILY Qty: 30 0RF No Action medroxyprogesterone [Depo-Provera] 150 mg/mL suspension 150 mg IM [id number] Qty: 1 4RF Referrals: Brennon Gurrola MD [Physician] - Print Language: Salvadorean
[2023-03-13 14:29] LABS: UPreg QC Valid YES; Urine Pregnancy POSITIVE (NEGATIVE)
[2023-03-13 14:30] LABS: Appearance Urine Clear; Color Urine Yellow; Glucose Urine UA Negative (Negative); Leukocyte Esterase Urine Small (1+) (Negative); Nitrite Urine Negative (Negative); PH 6.5 (5.0-9.0); UMIC TRIGGER UACC YES; Urine Blood Negative (Negative); Urine Ketones Negative (Negative); Urine Protein Negative (Neg-Trace)
[2023-03-13 14:32] LABS: Bacteria Urine 1+ (None Seen); Hyaline Casts Urine 0-2 /LPF (0-2); RBC Urine 0-2 /HPF (0-2); UACC Culture Trigger YES
[2023-03-13 16:09] LABS: MANUAL DIFF FLAG NO
[2023-03-13 16:14] LABS: Basophils Percent Auto 0.7 % (0-2); Eosinophils Absolute Auto 0.1 X10*3/uL (0.0-0.4); Eosinophils Percent Auto 1.3 % (0-4); Hematocrit 42.2 % (37.0-47.0); Hemoglobin 14.1 g/dl (12.0-16.0); Imm Gran Abs Auto 0.01 X10*3/uL (0.00-0.03); Imm Gran Pct Auto 0.2 % (0.0-0.4); Lymphocytes Absolute Auto 2.1 X10*3/uL (1.2-4.9); Lymphocytes Percent Auto 34.6 % (20-40); Mean Corpuscular HGB Conc 33.4 g/dl (31.0-35.0); Mean Corpuscular Hemoglobin 32.2 pg (27.0-33.0); Mean Corpuscular Volume 96.3 fL (80.0-98.0); Mean Platelet Volume 11.6 fL (9.4-12.3); Monocytes Absolute Auto 0.6 X10*3/uL (0.1-1.2); Monocytes Percent Auto 10.1 % (2-11); Neutrophils Absolute Auto 3.2 x10*3/uL (2.0-8.3); Neutrophils Percent Auto 53.1 % (45-73); Platelet Count 183 X10*3/uL (160-400); Red Blood Count 4.38 X10*6/uL (4.20-5.50); Red Cell Distribution Width 12.6 % (11.0-16.0)
[2023-03-13 16:15] LABS: INTERNATIONAL NORM RATIO 1.1 (0.9-1.1); Prothrombin Time 12.8 SEC (11.1-13.3)
[2023-03-13 16:31] LABS: Alanine Aminotransferase 15 U/L (0-31); Albumin Level 4.5 g/dL (3.5-5.0); Alkaline Phosphatase 39 U/L (39-117); Anion Gap 12 (12-20); Aspartate Amino Transferase 16 U/L (5-31); Bilirubin Total 1.6 mg/dL (0.0-1.0); Blood Urea Nitrogen 6 mg/dL (9-16); Calcium 9.4 mg/dL (8.4-10.2); Carbon Dioxide 22 mmol/L (22-29); Chloride 108 mmol/L (96-108); Creatinine Clr Calc Pharmacy 119.8; Estimated Glomerular Filt Rate > 60; Glucose Random 78 mg/dL (60-115); HCG Quantitative 7190 mIU/mL; Potassium 4.4 mmol/L (3.3-5.1); Sodium 138 mmol/L (135-145); Total Protein 7.3 g/dL (6.5-8.0)
== END 2023-03-13 18:27 | disposition home or self-care (01) ==
PROVIDERS: Physician Assistant Medical; Registered Nurse Emergency; Emergency Provider Emergency Medicine
DX: R10.30 Lower abdominal pain, unspecified (principal); R11.0 Nausea; R35.0 Frequency of micturition; Z32.01 Encounter for pregnancy test, result positive
CPT/HCPCS: 36415; 76801; 76817; 80053; 81001; 81025; 84702; 85025; 85610; 86850; 86900; 86901; 87086; 99283; 99284